=== PATIENT | male | born 1950 | race Caucasian/White ===

== ENCOUNTER 2018-03-26 15:26 | Inpatient (IN) | payer OTHER, MEDICARE ==
[2018-03-26] MEDS ORDERED: ENOXAPARIN 80 MG/0.8 ML SYR SC ONE (18:05)
--- NOTE | 2018-03-26 22:32 | GHP ---
[f rep st] HISTORY AND PHYSICAL DATE OF ADMISSION: 03/26/2018 CHIEF COMPLAINT: Jaundice and weight loss. 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 He presents to the emergency department after being referred by his newly established primary care provider after he was found to have a pancreatic mass obstructing the common bile duct. The patient has had jaundice over the past 4 days. He reports about 8 pounds of weight loss over the past 3 weeks. He has been having diarrhea since that time, and his appetite has been quite poor. He denies any fevers or chills. He describes a vague abdominal pain, but it is described as very mild and nonspecific. He denies any itching. 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 3. Hypertension. 4. Dyslipidemia. 5. GERD. 6. Cervical radiculopathy. PAST SURGICAL HISTORY: 1. Radical orchiectomy. 2. Umbilical hernia repair. 3. Inguinal hernia repair. HOME MEDICATIONS: Reviewed. Refer to home med reconciliation. ALLERGIES: No known drug allergies. 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 He denies any significant alcohol use. He denies any current tobacco use or illicit drug use. He smoked in the 80s. FAMILY HISTORY: Reviewed and noncontributory. REVIEW OF SYSTEMS: Comprehensive 10-point review of systems was done and is negative except for as mentioned in the HPI and below. He denies any chest pain. He denies any shortness of breath. PHYSICAL EXAMINATION: VITAL SIGNS: Blood pressure 104/74, pulse 68, respiratory rate 16, O2 saturation 98% on room air. Temperature 37.1. GENERAL : No acute distress. HEAD: Normocephalic, atraumatic. EYES: PERRLA with icteric sclerae. MOUTH: Moist mucous membranes. NECK: Supple. No lymphadenopathy. CARDIOVASCULAR: S1, S2. No murmurs, rubs, clicks, or gallops. No JVD. No lower extremity edema. PULMONARY: Lungs are clear. No wheezes, rales, or rhonchi. ABDOMEN: Soft, nontender, nondistended. No guarding or rebound tenderness. Normoactive bowel sounds. EXTREMITIES: No clubbing or cyanosis. NEURO: Cranial nerves 2-12 grossly intact. No focal motor or sensory deficits. SKIN: Jaundice, abdomen and chest. DIAGNOSTICS: Laboratory studies are not available to me due to [employer] downtime. CT report which the patient brought in revealed small volume acute thrombopulmonary embolic disease in the right lower lobe showing at least 2 small subsegmental filling defects. There is a 2 cm lesion of the pancreatic head at the major papilla, highly suspicious for pancreatic adenocarcinoma with a pancreatic mass obstructing the common bile duct. There were numerous indeterminate liver lesions as well as a 1 cm nodule in left adrenal node and an enlarged node posterior to the pancreatic head without encasement or thrombus of the portal venous system. ASSESSMENT AND PLAN: 1. Painless jaundice in the setting of weight loss. Found to have a 2 cm lesion at the pancreatic head with a mass obstructing the common bile duct suspicious for primary pancreatic adenocarcinoma with numerous indeterminate liver lesions and a 1 cm left adrenal nodule. Plan: The patient will be admitted to the hospital for further workup and evaluation. I have ordered a CBC, CMP, CA-19-9. I have asked Dr. Fitch with Gastroenterology to evaluate the patient for endoscopic retrograde cholangiopancreatography, biopsy, and biliary stent placement as well as Dr. Sanchez from Oncology to render an opinion regarding further treatment. 2. Small volume acute thrombopulmonary embolic disease. Plan: The patient appears to be asymptomatic from these small volume pulmonary emboli. However, he is very high risk for further venous thromboembolism. I have ordered 1 dose of Lovenox 1 mg/kg x1 now. If the patient does not go to procedure tomorrow, this will need to be re-dosed. 3. History of hypertension. Will continue home blood pressure medications and titrate as indicated. 4. The patient requests to be full code status. /[id number]/MODL MTDD
[2018-03-26] MEDS ORDERED: ONDANSETRON DISINTEGRATING 4 MG TAB PO PRN (23:00)
[2018-03-26] MEDS ORDERED: diphenhydrAMINE 25 MG CAP PO PRN (23:01)
[2018-03-26] MEDS ORDERED: PROMETHAZINE HCL 25 MG TAB PO PRN (23:01)
[2018-03-27 05:50] LABS: PLATELET COUNT 128 10^3/uL (150-400)
[2018-03-27] MEDS: PANTOPRAZOLE SODIUM 40 MG TAB PO SCH (08:38)
[2018-03-27] MEDS: FINASTERIDE 5 MG TAB PO SCH (08:38)
[2018-03-27] MEDS: TAMSULOSIN HCL 0.4 MG CAP PO SCH (08:38)
[2018-03-27] MEDS: VALSARTAN 160 MG TAB PO SCH (08:38)
[2018-03-27] MEDS: HYDROCHLOROTHIAZIDE 25 MG TAB PO SCH (08:39)
[2018-03-27] MEDS ORDERED: OMEGA-3 FATTY ACIDS 1,000 MG CAP PO SCH (09:00)
[2018-03-27] MEDS ORDERED: CHOLECALCIFEROL VIT D3 1,000 UNITS TAB PO SCH (09:00)
[2018-03-27] MEDS ORDERED: ASPIRIN EC 81 MG TAB PO SCH (09:00)
[2018-03-27] MEDS ORDERED: ATORVASTATIN CALCIUM 20 MG TAB PO SCH (09:00)
[2018-03-27] MEDS ORDERED: POTASSIUM CL 20 MEQ TAB PO ONE (09:45)
[2018-03-27] MEDS ORDERED: MAGNESIUM SULF 2 GM/WATER 50 ML IV ONE (10:00)
--- NOTE | 2018-03-27 10:04 | HOSPPROG ---
Hospitalist Progress Note Assessment/Plan: #Painless Jaundice #Pancreatic Mass obstructing CBC concerning for primary Pancreatic adenocarcinoma #Liver Lesions, Adrenal Gland Lesion #Hyperbilirubinemia #Bradycardia, sinus, at rest #HTN #Hypokalemia/Hypomagnesemia Plan: GI to performed EUS with stent, biopsy today Replace electrolytes per protocol continue inpatient Subjective: no pain. will have EUS today. BP controlled Objective: Vital Signs Temp Pulse Resp BP Pulse Ox 36.9 C 47 L 16 124/72 H 98 03/27/18 07:52 03/27/18 07:52 03/27/18 07:52 03/27/18 08:39 03/27/18 07:52 Laboratory Results 03/27/18 04:49 03/27/18 04:49 03/26/18 03/27/18 03/28/18 05:59 05:59 05:59 Intake Total 500 Balance 500 - Physical Exam Constitutional: no apparent distress Eyes: EOMI Ears, Nose, Mouth, Throat: moist mucous membranes, hearing normal Cardiovascular: regular rate and rhythym, No edema Respiratory: no respiratory distress Gastrointestinal: normoactive bowel sounds, soft, non-tender abdomen Skin: warm Neurologic: AAOx3 Psychiatric: interacting appropriately, not anxious, not encephalopathic ICD10 Worksheet Patient Problems: Problems Problem Status Onset Jaundice Acute - ICD10 Problem Qualifiers (1) Jaundice
[2018-03-27] MEDS ORDERED: LOPERAMIDE HCL 2 MG CAP PO PRN (10:17)
[2018-03-27] MEDS ORDERED: D5W 1/2 NS W/ 20 KCl/L 1,000 ML IV SCH (10:30)
--- NOTE | 2018-03-27 11:30 | GCON ---
[f rep st] CONSULTATION GASTROENTEROLOGY INPATIENT CONSULTATION DATE OF CONSULTATION: 03/27/2018 I was kindly requested to see the patient by Dr. Ervin Santacruz in consultation for chief complaint of jaundice. 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 He noticed about 8 days ago the development of jaundice, along with some weight loss over the last 3 weeks. He also complains of some fatigue, and some diarrhea prior to admission. Evaluation included a CT scan, that was done prior to admission at [facility], which shows a 2 cm pancreatic mass near the major papilla in the head of the pancreas, with 7 liver lesions seen, largest being 2.7 cm, suspicious for metastatic disease. There is a large lymph node posterior to the pancreatic head. There is dilation of the biliary ducts, including the common bile duct to 19 mm. There is also mention of a possible right lower lobe pulmonary emboli. PAST MEDICAL HISTORY: 1. As above. 2. Emboli: Inguinal hernia repair. 3. Scrotal liposarcoma, requiring surgery. 4. Rheumatoid arthritis. 5. Hypertension. 6. Elevated lipids. 7. Reflux, with a short-segment of Meyers's. He states that this was surveyed and biopsied in November, and was unremarkable. 8. Cervical radiculopathy. ALLERGIES: Include quinolones. MEDICATIONS: Inpatient medications include Enbrel weekly, Lipitor, Proscar, hydrochlorothiazide, a proton pump inhibitor daily, Flomax, and Diovan. SOCIAL HISTORY: He is . His 's name is Adamaris. FAMILY HISTORY: Negative for similar jaundice. REVIEW OF SYSTEMS: Positive pertinent review of systems as per my HPI. Otherwise, complete review of systems is negative. PHYSICAL EXAM: CONSTITUTIONAL: Nontoxic-appearing, pleasant gentleman. SKIN: Jaundice, warm. EYES: Scleral icterus, normal accommodation. EARS, NOSE, MOUTH, and THROAT: Oropharynx without masses, moist mucosa. CARDIOVASCULAR: Normal S2, normal PMI. RESPIRATORY: Lungs clear to auscultation and percussion anteriorly. GASTROINTESTINAL: Abdomen soft, nontender. NEUROLOGIC : Grossly nonfocal, cranial nerves grossly intact. PSYCHIATRIC: Orientation, insight appropriate. MUSCULOSKELETAL: Strength grossly normal throughout, normal station. LABORATORIES: Include hematocrit 37.6%, platelet count of 128,000. Total bilirubin 9.7. AST 176. CA 19-9 pending. Potassium 3. ASSESSMENT: Pancreatic mass, with secondary jaundice, dilation of his biliary system. Almost certainly represents a pancreatic adenocarcinoma. PLAN: 1. Dr. Cook will proceed with an endoscopic ultrasound/ERCP with stenting later this afternoon. With EUS, we will attempt to get a tissue diagnosis. 2. With his probable metastatic liver disease, if it is possible, we will try and place a metal biliary stent today. 3. We will give a dose of Unasyn preprocedure, since he has bile duct obstruction. 4. N.p.o. except meds, sips of water for the above. 5. IV fluids. 6. Imodium as needed, if he redevelops diarrhea. 7. We will check his coags, and correct as needed. Thank you for allowing me to help in the management of the patient. Copy requested to: Dr. Elisabeth Kaplan /[id number]/MODL MTDD
[2018-03-27] MEDS ORDERED: AMPICILLIN/SULBACTAM 3 GM in NS 100 ML IV ONE (12:30)
[2018-03-27 12:46] LABS: INR 1.2 (0.83-1.16); PROTIME(PATIENT) 15.4 SEC (12.0-15.0)
--- NOTE | 2018-03-27 15:27 | GCON ---
[f rep st] CONSULTATION ONCOLOGY CONSULT REFERRING PHYSICIAN: Ervin Santacruz DO HISTORY OF PRESENT ILLNESS: The patient is a 67-year-old gentleman, who had been feeling well up until the last couple of weeks. He has noticed about an 8- pound weight loss and just generally not feeling as well. About 12 days ago, he had noticed superficial phlebitis in his right leg. He really did not seek medical attention for it and treated it with aspirin; however, he had some occasional vomiting and loose, yellowish stools and increased lethargy. Last week, he flew back to [place], where he recently moved from to see his daughter and, while there, felt his eyes and skin looked jaundiced. After returning, he called his primary care provider. Set him up with labs and a CT scan, which revealed liver masses and a pancreatic mass. He is admitted to the hospital for further evaluation. He has been seen by GI and will undergo an EGD and probable stent placement. Aside from the weight loss and other symptoms as above, he denied any fever or night sweats. ALLERGIES: He is allergic flouroquinolones. HOME MEDICATIONS: Include fish oil, cholecalciferol, aspirin, omeprazole, valsartan with hydrochlorothiazide, tamsulosin, finasteride, etanercept and atorvastatin. CHRONIC ILLNESSES: 1. Paratesticular sarcoma, 2005, treated with surgical resection. 2. Polymyalgia rheumatica in 2012. 3. Seronegative rheumatoid arthritis, 2014. Initially started with Humira but had a local reaction, so has been on Enbrel with good control. 4. BPH. 5. History of atypical nevi. 6. Hypertension. 7. Elevated lipids. 8. Short length of Meyers's esophagitis, diagnosed 2004. He has been on PPI. Last endoscopy was in November. 9. Cervical radiculopathy, treated with epidurals and physical therapy. SURGICAL HISTORY: 1. Removal of the testicular sarcoma and a portion of the scrotum. 2. Inguinal hernia repair. SOCIAL HISTORY: He is . 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 Originally was living and practicing in [place], [place]. Drinks only occasionally. Never smoked. FAMILY HISTORY: Significant for a daughter, who had a superficial melanoma removed. No other history of pancreatic cancer or melanoma in the family. REVIEW OF SYSTEMS: 10-point review of systems performed. Pertinent positives in as per HPI. Otherwise negative. PHYSICAL EXAM: VITAL SIGNS: Temp is 37, pulse 62. Blood pressure is 122/70. GENERAL: He is in no distress. HEENT: Sclerae are icteric. SKIN: Jaundice. LUNGS: Clear. CARDIAC: Regular without murmur. ABDOMEN: Soft, mild discomfort in the upper abdomen but no overt pain or guarding. EXTREMITIES: He does have a palpable cord on his right inner leg, but it is nontender, and I do not appreciate any erythema. NEUROLOGICAL: Grossly intact. LABS: CBC shows a mild anemia, 13.2. PT is 15, PTT is 29.8. Chemistries: Potassium is a low 3, total bilirubin is 9.7, AST is 176. LDH 656. CA19-[address] of the abdomen shows small-volume acute thromboembolic disease in the right lower lobe, a 2 cm mass in the pancreatic head that is obstructing the common bile duct, and at least 7 indeterminate liver lesions suspicious for metastatic disease, and an enlarged lymph node posterior to the pancreatic head. There is an indeterminate left adrenal gland lesion, but he thought that might be old. IMPRESSION: 1. Painless jaundice with mass in the head of the pancreas and multiple liver lesions. 2. Remote history of scrotal sarcoma. 3. Incidental pulmonary emboli with recent history of superficial thrombophlebitis. 4. Seronegative rheumatoid arthritis. 5. Benign prostatic hypertrophy. 6. History of atypical nevi with a history of melanoma in his daughter. We discussed multiple issues today. He asked about genetic testing, which definitely could be done when we stabilize here since he has had atypical nevi and pancreatic cancer and sarcoma, and his daughter has had a superficial melanoma. As for the problem right now, he has biliary obstruction, and he is going to be evaluated by Gastroenterology and try to hopefully have a stent placed, which will alleviate the obstruction. At the same time, we will try to get some biopsies and samples to confirm our suspicion of a primary pancreatic cancer. We discussed the basics of therapy, which are not curative. He asked about a second opinion, which is quite reasonable, and we can see if he can get set up with Dr. Mathis or his partners down at the [facility], to see if they have any clinical trials available. We had a clinical trial, but I believe it has since closed. Finally, with the clot, we mostly just talked about the superficial phlebitis, which has me concerned for risks of other clotting, but the CT scan shows probably an asymptomatic pulmonary embolism, so he should be treated with anticoagulation. If he is eating and drinking fine, I am okay with using one of the oral agents since it is relatively low volume and more convenient. I will follow along with you while in the hospital. /[id number]/MODL MTDD
[2018-03-27] MEDS ORDERED: IOTHALAMATE MEG (CONRAY) 50 ML VIAL IV ONE (15:54)
[2018-03-27] MEDS ORDERED: GLUCAGON HCL 1 MG VIAL ONE (15:54)
[2018-03-27] MEDS ORDERED: LR 1,000 ML IV ONE (16:56)
--- NOTE | 2018-03-27 16:58 | EDPHY ---
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 He states over last 2 weeks or so he has had decreased appetite and has felt very weak and tired. He has not had any pain in his chest or felt short of breath. He has had some mild pain in his right leg knee thought that this appeared a bit swollen and he thought maybe this was from trauma. Over last few days he has developed some painless jaundice. He saw his primary care provider, Dr. Kaplan at the [facility], who ordered CT imaging of the abdomen and pelvis with IV contrast. The patient presents after having the studies from Radiology and report shows pancreatic mass with suspicious lesions in the liver as well as small volume pulmonary embolism involving the right lower lobe of the lung. No fevers or chills. No night sweats. No recent travel. He has had very mild generalized abdominal pain. Light-colored stools. No melena. No blood in his stool. REVIEW OF SYSTEMS: Constitutional: No fever, no chills. Eyes: No double or blurry vision. ENT: No sore throat. Respiratory: No cough, no shortness of breath. Cardiac: No chest pain. Gastrointestinal: Abdominal pain as above. No vomiting or diarrhea. Genitourinary: No dysuria. Musculoskeletal: No neck or back pain. Skin: No rashes. Neurological: No headache. Past Medical/Surgical History: Meyers's esophagus, GERD, rheumatoid arthritis on M [place], dyslipidemia, BPH, hypertension Social History: . 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 Moved [place] 5 weeks ago. Smoking Status: Former smoker Physical Exam: General Appearance: Alert, no distress. Afebrile. 97% on room air. 117/71. Jaundice. Eyes: Pupils equal and round. Extraocular motions are all intact. Icteric sclera. ENT: Mouth: Mucous membranes moist. Respiratory: No wheezing, rhonchi, or rales, lungs are clear to auscultation. Cardiovascular: Regular rate and rhythm. Gastrointestinal: Abdomen is soft and nontender, no masses, no rebound or guarding, bowel sounds normal. Neurological: Alert and oriented x 3, cranial nerves II through XII grossly intact Skin: Warm and dry, no rashes. Musculoskeletal: Nontender to palpate along the cervical, thoracic or lumbar spine. Neck is supple. Extremities: Full range of motion and no peripheral edema. Psychiatric: Patient is oriented X 3, there is no agitation. Constitutional: Initial Vital Signs Temperature (C) 37 C 03/27/18 05:19 Heart Rate 47 L 03/27/18 05:19 Respiratory Rate 16 03/27/18 05:19 Blood Pressure 117/71 03/27/18 05:19 O2 Sat (%) 97 03/27/18 05:19 Allergies/Adverse Reactions: Quinolones Allergy (Severe, Unverified 03/26/18 22:52) Other-Enter Comments Home Medications: Medication Instructions Recorded Aspirin EC [Aspirin EC 81 mg (*)] 81 mg PO DAILY 03/26/18 Atorvastatin Calcium [Lipitor 20 20 mg PO DAILY 03/26/18 mg (*)] Cholecalciferol Vit D3 [Vitamin D3 1,000 units PO DAILY 03/26/18 (*)] Etanercept [Enbrel] 50 mg SQ Q7D 03/26/18 Finasteride [Proscar 5 MG (*)] 5 mg PO DAILY 03/26/18 Herbals/Supplements -Info Only 1 ea PO DAILY 03/26/18 Ray-3 Fatty Acids [Fish Oil 1000 1,000 mg PO DAILY 03/26/18 mg (*)] Omeprazole 40 mg PO DAILY 03/26/18 Tamsulosin HCl [Flomax 0.4 MG (*)] 0.8 mg PO DAILY 03/26/18 Valsartan/Hydrochlorothiazide 1 each PO DAILY 03/26/18 [Valsartan-Hctz 160-12.5 mg Tab] Medical Decision Making - Diagnostics Imaging Results: Imaging Impressions Abdomen CT 03/26/18 12:36 Impression: 1. Small volume acute thrombopulmonary embolic disease right lower lobe. 2. 2-cm mass in pancreatic head, at major papilla, suspicious for primary pancreatic adenocarcinoma. 3. Pancreatic mass obstructs common bile duct and pancreatic duct. 4. Numerous (at least 7) indeterminate liver lesions suspicious for metastatic pancreatic adenocarcinoma. The lesion in the caudal right lobe, measuring 1.5 cm , may be amenable to ultrasound-guided biopsy, if desired. 5. Minimally enlarged node posterior to pancreatic head. No encasement or thrombosis of the portal venous system. 6. Small indeterminate 1-cm nodule left adrenal gland. Recommend PET/CT for optimal staging. 7. No ascites or peritoneal implant. Findings discussed with physician, Dr. Betsey Kaplan at 03/26/2018 14:40. ED Course/Re-evaluation: This patient was seen during downtime. 67-year-old male presents to the emergency department with painless jaundice. CT imaging reveals pancreatic tumor with likely metastasis involving the liver. There is also small volume PE. The case was discussed with Dr. Rodney, secondary supervising physician, who spoke with the hospitalist, Dr. Ervin Santacruz for admission to the hospital who will speak with Oncology and Gastroenterology. CBC was within normal limits. The rest of his laboratory studies are still pending. Differential Diagnosis: Including but not limited to pulmonary embolism, pancreatic tumor with metastasis, bowel obstruction, GERD, peptic ulcer disease - Data Points Medications Given: Finasteride (Proscar) 5 mg PO DAILY CANDIDA Stop: 09/23/18 08:59 Last Admin: 03/27/18 08:38 Dose: 5 mg Hydrochlorothiazide (Hydrochlorothiazide) 12.5 mg PO DAILY CANDIDA Stop: 09/23/18 08:59 Last Admin: 03/27/18 08:39 Dose: 12.5 mg Potassium Chloride/Dextrose/Sod Cl (D5w 1/2 Ns W/ 20 Kcl/L) 1,000 mls @ 100 mls /hr IV CONT CANDIDA Stop: 09/23/18 10:29 Last Admin: 03/27/18 10:27 Dose: 1,000 mls Pantoprazole Sodium (Protonix) 40 mg PO DAILY CANDIDA Stop: 09/23/18 08:59 Last Admin: 03/27/18 08:38 Dose: 40 mg Tamsulosin HCl (Flomax) 0.8 mg PO DAILY CANDIDA Stop: 09/23/18 08:59 Last Admin: 03/27/18 08:38 Dose: 0.8 mg Valsartan (Diovan) 160 mg PO DAILY CANDIDA Stop: 09/23/18 08:59 Last Admin: 03/27/18 08:38 Dose: 160 mg Discontinued Medications Enoxaparin Sodium (Lovenox) 70 mg SC ONCE ONE Stop: 03/26/18 18:06 Last Admin: 03/27/18 05:09 Dose: Not Given Magnesium Sulfate (Magnesium Sulf 2 Gm (Premix)) 50 mls @ 50 mls/hr IV ONCE ONE Stop: 03/27/18 10:59 Last Admin: 03/27/18 10:27 Dose: 50 mls Ampicillin Sodium/Sulbactam (Sodium 3 gm/ Sodium Chloride) 100 mls @ 200 mls/ hr IV ONCE ONE PRN Reason: Protocol Stop: 03/27/18 12:59 Last Admin: 03/27/18 13:37 Dose: 100 mls Potassium Chloride (Klor-Con) 40 meq PO ONCE ONE Stop: 03/27/18 09:46 Last Admin: 03/27/18 10:28 Dose: 40 meq Departure - Departure Disposition: [facility] Inpatient Acute Clinical Impression: Jaundice, Pancreatic tumor Pulmonary embolism Qualifiers: Pulmonary embolism type: other Chronicity: acute Acute cor pulmonale presence: without acute cor pulmonale Qualified Code(s): I26.99 - Other pulmonary embolism without acute cor pulmonale Condition: Good
[2018-03-27] MEDS ORDERED: PROPOFOL 200 MG/20 ML VIAL ONE ×2 (17:11)
[2018-03-27] MEDS ORDERED: ROCURONIUM 50 MG/5 ML VIAL ONE (17:11)
[2018-03-27] MEDS ORDERED: LIDOCAINE 2% 100 MG/5 ML SYR ONE (17:12)
[2018-03-27] MEDS ORDERED: MIDAZOLAM 2 MG/2 ML VIAL ONE (17:32)
--- NOTE | 2018-03-27 17:56 | PDANEPAE ---
ANE History of Present Illness newly discovered pancreatic mass, also liver mass here for EUS/ERCP ANE Past Medical History - Cardiovascular History Hx Hypertension: No Hx Arrhythmias: No Hx Chest Pain: No Hx Coronary Artery / Peripheral Vascular Disease: No - Pulmonary History Hx COPD: No Hx Asthma/Reactive Airway Disease: No Hx Oxygen in Use at Home: No Hx Sleep Apnea: No Sleep Apnea Screening Result - Last Documented: Negative - Endocrine History Hx Diabetes: No - Renal History Renal History Comment: BPH ANE Review of Systems Review of Systems: - Exercise capacity Exercise capacity: >=4 METS ANE Patient History - Allergies Allergies/Adverse Reactions: Quinolones Allergy (Severe, Unverified 03/26/18 22:52) Other-Enter Comments - Home Medications Home medications: home medication list seen and reviewed Home Medications: Aspirin EC [Aspirin EC 81 mg (*)] 81 mg PO DAILY 03/26/18 [Last Taken 03/26/18] Atorvastatin Calcium [Lipitor 20 mg (*)] 20 mg PO DAILY 03/26/18 [Last Taken 10/01] Cholecalciferol Vit D3 [Vitamin D3 (*)] 1,000 units PO DAILY 03/26/18 [Last Taken 03/26/18] Etanercept [Enbrel] 50 mg SQ Q7D 03/26/18 [Last Taken 03/24/18] Finasteride [Proscar 5 MG (*)] 5 mg PO DAILY 03/26/18 [Last Taken 03/26/18] Herbals/Supplements -Info Only 1 ea PO DAILY 03/26/18 [Last Taken 03/26/18] [place]-3 Fatty Acids [Fish Oil 1000 mg (*)] 1,000 mg PO DAILY 03/26/18 [Last Taken 03/26/18] Omeprazole 40 mg PO DAILY 03/26/18 [Last Taken 03/26/18] Tamsulosin HCl [Flomax 0.4 MG (*)] 0.8 mg PO DAILY 03/26/18 [Last Taken 03/26/18 ] Valsartan/Hydrochlorothiazide [Valsartan-Hctz 160-12.5 mg Tab] 1 each PO DAILY 03/26/18 [Last Taken 03/26/18] - NPO status NPO Status: no food or drink >8 hours NPO Since - Liquids (Date): 03/27/18 NPO Since - Liquids (Time): 01:00 NPO Since - Solids (Date): 03/26/18 NPO Since - Solids (Time): 19:30 - Anes Hx Anes Hx: no prior problems - Smoking Hx Smoking Status: Former smoker - Alcohol Use Alcohol Use: None - Family Anes Hx Family Anes Hx: none ANE Labs/Vital Signs - Labs Result Diagrams: 03/27/18 04:49 03/27/18 04:49 - Vital Signs Blood Pressure: 124/77 Heart Rate: 69 Respiratory Rate: 16 O2 Sat (%): 97 Height: 176.53 cm Weight: 71 kg ANE Physical Exam - Airway Neck exam: FROM Mallampati Score: Class 2 Mouth exam: normal dental/mouth exam - Pulmonary Pulmonary: no respiratory distress, clear to auscultation - Cardiovascular Cardiovascular: regular rate and rhythym, no murmur, rub, or gallop - ASA Status ASA Status: III ANE Anesthesia Plan Anesthesia Plan: general endotracheal anesthesia Urgent/Emergent Case: Colleen gutierrez completed preop but documented later for safe timely pt care
[2018-03-27] MEDS ORDERED: epHEDrine SULFATE 10 MG/ML SYR ONE (18:09)
--- NOTE | 2018-03-27 18:13 | PDMN ---
Medical Necessity Medical necessity: est los>2mn for painless jaundice, pancreatic mass, liver lesions, and hypokalemia, hypomagnesemia, and hyperbilirubinemia; admit for GI consult, EUS W/stent and bx; per order 03/26/18
[2018-03-27] MEDS ORDERED: PROMETHAZINE HCL 25 MG/ML INJ IVP PRN (19:35)
[2018-03-27] MEDS ORDERED: ONDANSETRON 4 MG/2 ML VIAL IVP PRN (19:35)
[2018-03-27] MEDS ORDERED: NALOXONE HCL 0.4 MG/ML INJ IVP PRN (19:35)
[2018-03-27] MEDS ORDERED: ACETAMINOPHEN 500 MG TAB PO PRN (19:35)
[2018-03-27] MEDS ORDERED: DIAZEPAM 5 MG/ML 1 ML SYR IVP PRN (19:35)
[2018-03-27] MEDS ORDERED: INDOMETHACIN 50 MG SUPP PR ONE (19:37)
--- NOTE | 2018-03-27 19:37 | POSTANESTH ---
Post Anesthetic Evaluation Cardiovascular Status: Normal, Stable, Similar to Pre-Op Cond Respiratory Status: Normal, Stable, Similar to Pre-op Cond. Level of Consciousness/Mental Status: Can Participate in Eval, Alert and Oriented Pain Control: Adequate, Prn Tx Ordered Nausea/Vomiting Control: Adequate, Prn Tx Ordered Complications Possibly Related to Anesthesia: None Noted
--- NOTE | 2018-03-27 20:22 | SOAPPROG ---
SOAP Progress Note Assessment/Plan: Assessment: Plan: 03/27/18 20:21 GI note See dictated EUS report for details. . FNA performed of liver lesion. Preliminary report is lesional. EBL: Minimal Meds: General. Objective: Vital Signs Temp Pulse Resp BP Pulse Ox 36.5 C 63 17 105/56 L 98 03/27/18 20:01 03/27/18 20:00 03/27/18 20:01 03/27/18 20:01 03/27/18 20:01 Laboratory Results 03/27/18 04:49 03/27/18 04:49 03/26/18 03/27/18 03/28/18 05:59 05:59 05:59 Intake Total 500 1705 Balance 500 1705 PT 15.4 SEC (12.0-15.0) H 03/27/18 12:15 INR 1.20 (0.83-1.16) H 03/27/18 12:15 ICD10 Worksheet Patient Problems: Problems Problem Status Onset Jaundice Acute Pancreatic tumor Acute Pulmonary embolism Acute
[2018-03-27] MEDS ORDERED: HEPARIN 10,000 UNIT/10 ML MDV (1,000 UNIT/ML) IVP PRN (21:00)
[2018-03-27] MEDS ORDERED: HEPARIN 10,000 UNIT/10 ML MDV (1,000 UNIT/ML) IVP ONE (21:00)
[2018-03-27] MEDS ORDERED: HEPARIN/DEXTROSE 500 ML IV SCH (21:00)
--- NOTE | 2018-03-27 21:24 | GPN ---
[f rep st] PROCEDURE NOTE DATE OF PROCEDURE: 03/27/2018 PROCEDURE: Esophagogastroduodenoscopy with biopsy, endoscopic ultrasound with fine-needle aspiration. INDICATIONS: The patient is a 67-year-old male who recently presented with bilary obstruction/jaundice. He had a CT scan which did reveal a possible mass lesion in the pancreas, liver with enlarged lymph nodes. He presents for further evaluation and possible tissue acquisition. CONSENT: Risks, benefits, and alternatives of the procedure were discussed in great detail with the patient. Risks of infection, bleeding, perforation, sedation, and pancreatitis were discussed. All questions answered and informed consent was obtained. MEDICATIONS: General anesthesia. Please see Anesthesia record for details. ESTIMATED BLOOD LOSS: Insignificant. ESOPHAGOGASTRODUODENOSCOPY EXAMINATION: The Olympus upper endoscope was introduced into the mouth and advanced to the esophagus. The proximal and mid esophagus were normal in appearance. The patient had an irregular Z-line. This was not biopsied since it was previously biopsied and he has a known history of short-segment Meyers's esophagus. The stomach was entered and closely examined, including retroflexed views of the angularis, cardia and fundus. A large hiatal hernia was noted. The mucosa of the whole body and fundus of the stomach were erythematous and nodular. The folds were very thickened. Biopsies taken. The duodenal bulb and second portion were normal in appearance. ENDOSCOPIC ULTRASOUND EXAMINATION: The Olympus linear echoendoscope was introduced in mouth and advanced to second portion of the duodenum. The esophagus, stomach, and duodenum were visualized endosonographically. The pancreas was examined from the uncinate process to the tail, where the spleen was seen. The pancreatic parenchyma was atrophic. Hyperechoic foci as well as prominent side branches with hyperechoic beck were noted throughout he pancreas. In the head of the pancreas, an approximate 2 cm ill-defined lesion was noted. The common bile duct seen running into the lesion. No vascular involvement was noted. No stone disease noted. Doppler was used to rule out intervening vessels. Two transduodenal pass with a 25 gauge needle were performed. Cytology was present and the specimen was not adequate. In the right lobe of the liver, an approximate 2 cm lesion was seen. It was hypoechoic and had well-defined margins. Doppler was used to rule out intervening vessels. One transduodenal pass was made with a 25 gauge needle. Cytology was present and is adequate on preliminary report. The common bile duct was seen. It was noted running through a lesion and was dilated to 15mm. The gallbladder was significantly distended with significant debris. Multiple round, hypoechoic peripancreatic lymph nodes with distinct margins were noted. They measuring 4-7 mm. IMPRESSION: 1. Pancreatic head lesion- with liver lesion. FNA performed and preliminary report of the liver lesion was lesional. No obvious vascular involvement noted. 2. Irregular nodular folds in the stomach. 3. Short-segment of Meyers's esophagus. RECOMMENDATIONS: 1. Proceed with ERCP. 2. N.p.o. 3. Continue previous medications. /[id number]/MODL MTDD
[2018-03-28 04:59] LABS: PLATELET COUNT 149 10^3/uL (150-400)
[2018-03-28] MEDS: HYDROCHLOROTHIAZIDE 25 MG TAB PO SCH (09:07)
[2018-03-28] MEDS: PANTOPRAZOLE SODIUM 40 MG TAB PO SCH (09:08)
[2018-03-28] MEDS: VALSARTAN 160 MG TAB PO SCH (09:08)
[2018-03-28] MEDS: TAMSULOSIN HCL 0.4 MG CAP PO SCH (09:08)
[2018-03-28] MEDS: FINASTERIDE 5 MG TAB PO SCH (09:08)
[2018-03-28 11:20] LABS: INR 1.3 (0.83-1.16); PROTIME(PATIENT) 16.4 SEC (12.0-15.0)
[2018-03-28 11:21] LABS: PLATELET COUNT 260 10^3/uL (150-400)
--- NOTE | 2018-03-28 12:08 | SOAPPROG ---
AAYUSH Progress Note Assessment/Plan: E&M probable pancreatic cancer * Pancreatic mass with liver lesions: presumed pancreatic cancer; biopsy pending. I spent about an hour with patient and discussing therapy options. They would like to try to get a port while here before starting anticoagulation. IMED was going to call surgery. * Pulmonary Embolism: incidental but patient high risk so I recommend anticoagulation. Ok to use COURT. * Biliary Obstruction: s/p stent placed 03/27. Bili much better. Subjective: No acute complaints. Slight discomfort in abd. Objective: Vital Signs Temp Pulse Resp BP Pulse Ox 36.6 C 83 16 127/75 H 96 03/28/18 07:56 03/28/18 07:56 03/28/18 07:56 03/28/18 09:08 03/28/18 07:56 Laboratory Results 03/28/18 04:27 03/28/18 04:27 03/27/18 03/28/18 03/29/18 05:59 05:59 05:59 Intake Total 500 2055 Balance 500 2055 PT 15.4 SEC (12.0-15.0) H 03/27/18 12:15 INR 1.20 (0.83-1.16) H 03/27/18 12:15 - Time Spent With Patient Time Spent With Patient: 60 min Physical Exam - Physical Exam General Appearance: no apparent distress ICD10 Worksheet Patient Problems: Problems Problem Status Onset Jaundice Acute Pancreatic tumor Acute Pulmonary embolism Acute
--- NOTE | 2018-03-28 12:59 | HOSPPROG ---
Hospitalist Progress Note Assessment/Plan: #Painless Jaundice #Pancreatic Mass obstructing CBD concerning for primary Pancreatic adenocarcinoma #Liver Lesions, Adrenal Gland Lesion #Hyperbilirubinemia #Bradycardia, sinus, at rest #HTN #Hypokalemia/Hypomagnesemia #P.E. #Acute Kidney Injury Plan: -Await Path -Presumptive diagnosis is Pancreatic Cancer -Needs Port, will try to arrange while he is here -Needs Anticoagulation, and this can be arranged around PORT insertion and if ok with GI given Liver biopsy -IVF for GARETH, recheck labs -replace electrolytes per protocol -ONC care per Oncology Cont inpatient. If able to arrange PORT and Cr better, then consider d/c today. Possibly d/c tomorrow Await biopsy result Subjective: Cr has increased. IVF running Objective: Vital Signs Temp Pulse Resp BP Pulse Ox 36.6 C 83 16 127/75 H 96 03/28/18 07:56 03/28/18 07:56 03/28/18 07:56 03/28/18 09:08 03/28/18 07:56 Laboratory Results 03/28/18 04:27 03/28/18 04:27 03/27/18 03/28/18 03/29/18 05:59 05:59 05:59 Intake Total 500 2055 Balance 500 2055 PT 15.4 SEC (12.0-15.0) H 03/27/18 12:15 INR 1.20 (0.83-1.16) H 03/27/18 12:15 - Physical Exam Constitutional: no apparent distress Eyes: PERRL, EOMI Ears, Nose, Mouth, Throat: moist mucous membranes, hearing normal Cardiovascular: No edema Respiratory: no respiratory distress Gastrointestinal: No ascites, No guarding, No distension Skin: No abrasion, No rash Neurologic: AAOx3 Psychiatric: interacting appropriately, not anxious, not encephalopathic Lymph, Heme, Immunologic: No petechiae ICD10 Worksheet Patient Problems: Problems Problem Status Onset Jaundice Acute Pancreatic tumor Acute Pulmonary embolism Acute - ICD10 Problem Qualifiers (1) Jaundice
--- NOTE | 2018-03-28 13:07 | GIREPORT ---
Former[facility] Surgical Services - Endoscopy Department Patient Name: Milton Horton Procedure Date: 03/27/2018 6:42 PM Patient Type: Inpatient Attending MD/ ER Physician: Jefferson Fitch MD Procedure: ERCP Indications: Note dictated, consult appreciated. Jaundice. EUS done prior, with diag nosis of pancreatic cancer made. Providers: Jefferson Fitch MD Medicines: General Anesthesia Complications: No immediate complications. Description of Procedure: After obtaining informed consent, the scope was passed under direct vis ion. Throughout the procedure, the patient's blood pressure, pulse, and oxyg en saturations were monitored continuously. The Duodenalscope was introduc ed through the mouth, and advanced to the duodenum and used to inject cont rast into the bile duct. Findings: EGD findings as per Dr. Cook's earlier EGD/EUS. Normal ampulla. Selective cbd cannulation achieved, with a 2 cm maligna nt stricture seen in the distal cbd, with significant dilation above this. An 8 mm biliary sphincterotomy was made with a sphincterotome, at the 12 o'c lock position. There was no post-sphincterotomy bleeding. Then, a 10 mm, 6 c m covered metal stent was placed, bridging the above stricture. At proced ure's end, copious flow of bile and some sludge seen. 100 mg indomethacin giv en TN at procedure's end, to prevent postERCP pancreatitis (doubt). Estimated Blood Loss: none. Post Op Diagnosis: - Bile duct obstruction, from pancreatic cancer. Stented as above, with copious bile seen post-procedure. Recommendation: - feed - once taking adequate p.o., buffcap IV; as per hospitalist - else, further management as per hospitalist, oncologist. - no heparin products tonight (had sphincterotomy, pancreatic mass and liver bx all done tonight). Tomorrow, if Hct stable, o.k. to start, but would keep dose minimal x 24 hours. I will sign off; please call if we can be of further help [phone] Thank you for allowing me to help in the management of this patient. Attending Participation: I personally performed the entire procedure. Little Paulino MD Jefferson Fitch MD 03/28/2018 1:06:56 PM This report has been signed electronicallyPeter MD Little Number of Addenda: 0 Note Initiated On: 03/27/2018 6:42 PM [email or web address]
[2018-03-28] MEDS ORDERED: NS 500 ML IV ONE (14:57)
--- NOTE | 2018-03-28 15:02 | ASMTCMCOM ---
CM Note CM Note Notes: Pt with likely new dx pf panc ca. Biopsy pending. Pt will get port placement. It is unclear if pt will have any DC needs. CM to follow. Date Signed: 03/28/2018 03:02 PM Electronically Signed By:Kirsten Rodriguez LCSW
[2018-03-28] MEDS: NS 1,000 ML IV SCH ×2 (16:36→23:00)
[2018-03-28] MEDS ORDERED: hydrALAZINE 10 MG TAB PO PRN (17:32)
--- NOTE | 2018-03-28 17:41 | PDCONSULT ---
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 Likely multifactorial in setting of contrast given, poor oral intake while NPO for tests, and ongoing HCTZ and ARB usage, BP running a little low. Seems a bit oliguric today but volume status and lytes ok. - No need for HD at this time. - Will continue IVFs, would only reduce to 100ml/hr if he starts to develop noticeable swelling. - Will check UA, urine PCR, urine sodium, CK. - Will check renal US. - Will continue to monitor. - Avoid hypotension and nephrotoxins. - Will hold HCTZ and ARB for now. - Will ensure that he has f/u in clinic after discharge. HTN: BP a bit on the low side. - Will hold HCTZ and ARB for now. - Will provide hydralazine as needed. - Will continue to monitor. Metabolic acidosis: widening AG today, could be from GARETH but will also check a lactate. Thank you for the interesting consult. Nephrology will continue to follow, please call if you have any additional questions or concerns. 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 He notes that just under two weeks ago he developed a phlebitis in his leg, which he attributed to an accident with a dog he was dogsitting. Then last week he started to develop some icteric sclerae, which worsened over the weekend while visiting his daughter in [place]. He came back Sunday and was seen by a PCP on Sunday, was admitted for further workup shortly after imaging, which showed pancreatic mass with liver nodules. He has had an EGD with biopsy and an ERCP here in interim. He has also had a contrasted study done yesterday. He has largely been NPO and not drinking too much fluids here, was on 1/2NS since yesterday. He notes that he did get indomethacin during ERCP. He did not urinate much overnight for all the fluid he was given in ERCP, and he notes maybe 100ml UOP in the past 5 hours. He is now on NS since this afternoon, was bolused and running at 150ml/hr now. He has no edema, dyspnea or pain. He denies any other recent NSAID use, notes that his Cr of 1.2 on presentation was baseline for him. His Cr this am was up to 1.8, on repeat this afternoon was still 1.8, prompting referral. His initial UA two days ago had no hematuria or dysuria. ROS: Positive per HPI and for weight loss, rest of 10-point ROS negative - Medical/Surgical History Hx Asthma: No Hx Chronic Respiratory Disease: No Hx Diabetes: No Hx Cardiac Disease: No Hx Renal Disease: No Hx Cirrhosis: No Hx Alcoholism: No Hx HIV/AIDS: No Hx Splenectomy or Spleen Trauma: No Other PMH: HTN, BPH, GERD, RA, Barretts (remote), paratesticular liposarcoma - Family History Significant Family History: No pertinent family hx - Social History Smoking Status: Former smoker - Physical Exam Exam: General: alert and oriented, no acute distress Eyes: EOMI, PERRL OP: Clear, MMM Neck: supple, no thyromegaly CV: +2/4 dorsalis pedis pulses, no peripheral edema Resp: nonlabored respirations on RA, no wheezing or cough Abd: Soft, ND Neuro: CN II-XII Grossly intact, no asterixis Psych: cooperative, appropriate mood and affect Skin: C/D/I, no rash on lower extremities Access: none Constitutional: Initial Vital Signs Temperature (C) 37 C 03/27/18 05:19 Heart Rate 47 L 03/27/18 05:19 Respiratory Rate 16 03/27/18 05:19 Blood Pressure 117/71 03/27/18 05:19 O2 Sat (%) 97 03/27/18 05:19 Allergies/Adverse Reactions: Quinolones Allergy (Severe, Unverified 03/26/18 22:52) Other-Enter Comments Home Medications: Medication Instructions Recorded Aspirin EC [Aspirin EC 81 mg (*)] 81 mg PO DAILY 03/26/18 Atorvastatin Calcium [Lipitor 20 20 mg PO DAILY 03/26/18 mg (*)] Cholecalciferol Vit D3 [Vitamin D3 1,000 units PO DAILY 03/26/18 (*)] Etanercept [Enbrel] 50 mg SQ Q7D 03/26/18 Finasteride [Proscar 5 MG (*)] 5 mg PO DAILY 03/26/18 Herbals/Supplements -Info Only 1 ea PO DAILY 03/26/18 [place]-3 Fatty Acids [Fish Oil 1000 1,000 mg PO DAILY 03/26/18 mg (*)] Omeprazole 40 mg PO DAILY 03/26/18 Tamsulosin HCl [Flomax 0.4 MG (*)] 0.8 mg PO DAILY 03/26/18 Valsartan/Hydrochlorothiazide 1 each PO DAILY 03/26/18 [Valsartan-Hctz 160-12.5 mg Tab] Lab and Imaging 03/28/18 04:27 03/28/18 14:07 WBC 5.05 10^3/uL (3.80-9.50) 03/28/18 04:27 RBC 4.24 10^6/uL (4.40-6.38) L 03/28/18 04:27 Hgb 13.1 g/dL (13.7-17.5) L 03/28/18 04:27 Hct 37.8 % (40.0-51.0) L 03/28/18 04:27 MCV 89.2 fL (81.5-99.8) 03/28/18 04:27 MCH 30.9 pg (27.9-34.1) 03/28/18 04:27 MCHC 34.7 g/dL (32.4-36.7) 03/28/18 04:27 RDW 13.2 % (11.5-15.2) 03/28/18 04:27 Plt Count 149 10^3/uL (150-400) L 03/28/18 04:27 MPV 11.1 fL (8.7-11.7) 03/28/18 04:27 Neut % (Auto) 84.0 % (39.3-74.2) H 03/28/18 04:27 Lymph % (Auto) 8.7 % (15.0-45.0) L 03/28/18 04:27 [place] % (Auto) 6.7 % (4.5-13.0) 03/28/18 04:27 Eos % (Auto) 0.0 % (0.6-7.6) L 03/28/18 04:27 Baso % (Auto) 0.4 % (0.3-1.7) 03/28/18 04:27 Nucleat RBC Rel Count 0.0 % (0.0-0.2) 03/28/18 04:27 Absolute Neuts (auto) 4.24 10^3/uL (1.70-6.50) 03/28/18 04:27 Absolute Lymphs (auto) 0.44 10^3/uL (1.00-3.00) L 03/28/18 04:27 Absolute Monos (auto) 0.34 10^3/uL (0.30-0.80) 03/28/18 04:27 Absolute Eos (auto) 0.00 10^3/uL (0.03-0.40) L 03/28/18 04:27 Absolute Basos (auto) 0.02 10^3/uL (0.02-0.10) 03/28/18 04:27 Absolute Nucleated RBC 0.00 10^3/uL (0-0.01) 03/28/18 04:27 Immature Gran % 0.2 % (0.0-1.1) 03/28/18 04:27 Immature Gran # 0.01 10^3/uL (0.00-0.10) 03/28/18 04:27 RBC/WBC/PLT Morphology TNP 03/28/18 04:27 Platelet Estimate TNP 03/28/18 04:27 PT 15.4 SEC (12.0-15.0) H 03/27/18 12:15 INR 1.20 (0.83-1.16) H 03/27/18 12:15 APTT 29.8 SEC (23.0-38.0) 03/27/18 12:15 Sodium 142 mEq/L (135-145) 03/28/18 14:07 Potassium 3.6 mEq/L (3.3-5.0) 03/28/18 14:07 Chloride 103 mEq/L (97-110) 03/28/18 14:07 Carbon Dioxide 22 mEq/l (22-31) 03/28/18 14:07 Anion Gap 17 mEq/L (8-16) H 03/28/18 14:07 BUN 31 mg/dL (7-23) H 03/28/18 14:07 Creatinine 1.8 mg/dL (0.7-1.3) H 03/28/18 14:07 POC Creatinine 1.4 mg/dL (0.7-1.3) H 03/26/18 13:31 Estimated GFR 38 03/28/18 14:07 Glucose 180 mg/dL (70-100) H 03/28/18 14:07 Calcium 8.9 mg/dL (8.5-10.4) 03/28/18 14:07 Phosphorus 3.0 mg/dL (2.5-4.5) 03/27/18 04:49 Magnesium 1.4 mg/dL (1.6-2.3) L 03/27/18 04:49 Total Bilirubin 5.5 mg/dL (0.1-1.4) H 03/28/18 04:27 Conjugated Bilirubin 2.6 mg/dL (0.0-0.5) H 03/28/18 04:27 Unconjugated Bilirubin 2.9 mg/dL (0.0-1.1) H 03/28/18 04:27 AST 155 IU/L (17-59) H 03/28/18 04:27 ALT 192 IU/L (21-72) H 03/28/18 04:27 Alkaline Phosphatase 388 IU/L (38-126) H 03/28/18 04:27 Lactate Dehydrogenase 656 IU/L (313-618) H 03/27/18 04:49 Total Protein 6.3 g/dL (6.3-8.2) 03/28/18 04:27 Albumin 3.7 g/dL (3.5-5.0) 03/28/18 04:27 Lipase 1396 IU/L (23-300) H 03/26/18 16:05 Urine Color JUAN MIGUEL 03/26/18 16:05 Urine Appearance CLEAR 03/26/18 16:05 Urine pH 5.0 (5.0-7.5) 03/26/18 16:05 Ur Specific [place] 1.035 (1.002-1.030) H 03/26/18 16:05 Urine Protein NEGATIVE (NEGATIVE) 03/26/18 16:05 Urine Ketones NEGATIVE (NEGATIVE) 03/26/18 16:05 Urine Blood 1+ (NEGATIVE) H 03/26/18 16:05 Urine Nitrate NEGATIVE (NEGATIVE) 03/26/18 16:05 Urine Bilirubin NEGATIVE (NEGATIVE) 03/26/18 16:05 Urine Urobilinogen NEGATIVE EU (0.2-1.0) 03/26/18 16:05 Ur Leukocyte Esterase NEGATIVE (NEGATIVE) 03/26/18 16:05 Urine RBC 1-3 /hpf (0-3) 03/26/18 16:05 Urine WBC 1-3 /hpf (0-3) 03/26/18 16:05 Ur Epithelial Cells NONE SEEN /lpf (NONE-1+) 03/26/18 16:05 Urine Mucus TRACE /lpf (NONE-1+) 03/26/18 16:05 Urine Glucose NEGATIVE (NEGATIVE) 03/26/18 16:05
[2018-03-29 05:33] LABS: CREATINE KINASE 113 IU/L (0-224)
[2018-03-29] MEDS: NS 1,000 ML IV SCH (06:32)
[2018-03-29 08:01] VITALS: BP 116/71
[2018-03-29] MEDS: FINASTERIDE 5 MG TAB PO SCH (08:48)
[2018-03-29] MEDS: PANTOPRAZOLE SODIUM 40 MG TAB PO SCH (08:48)
[2018-03-29] MEDS: TAMSULOSIN HCL 0.4 MG CAP PO SCH (08:48)
--- NOTE | 2018-03-29 09:41 | SOAPPROG ---
SOAP Progress Note Assessment/Plan: Assessment/Plan: GARETH on CKD 2: Rise in Cr from baseline of 1.2 to 1.8 yesterday, remained stable there on recheck. Likely multifactorial in setting of contrast given, poor oral intake while NPO for tests, and ongoing HCTZ and ARB usage, BP running a little low. Pt now nonoliguric with good lytes and volume status with IVFs, Cr down to 1.4 today. UA unrevealing and renal US with a cyst. - No need for HD at this time. - Ok to stop IVFs on discharge. - Avoid hypotension and nephrotoxins. - Would continue to hold HCTZ and ARB for now. - Will ensure he has f/u in clinic after discharge and repeat labs next week. - Ok to discharge from nephrology standpoint. HTN: BP a bit on the low side here. - Would hold HCTZ and ARB on discharge for now. - Ok to provide some prn hydralazine to go home with, pt will continue to check his BP at home. - Will f/u as outpatient. Subjective: No acute events overnight. Pt had better UOP overnight with 1350ml yesterday total. He has no swelling, is breathing comfortably, denies any pain. He still is only able to eat or drink a little at a time because it makes him feel full. Objective: Vital Signs Temp Pulse Resp BP Pulse Ox 36.9 C 41 L 16 116/71 97 03/29/18 08:00 03/29/18 08:00 03/29/18 08:00 03/29/18 08:00 03/29/18 08:00 Laboratory Results 03/29/18 04:48 03/29/18 04:48 03/28/18 03/29/18 03/30/18 05:59 05:59 05:59 Intake Total 2054 4728 Output Total 1350 150 Balance 2054 3378 -150 PT 15.4 SEC (12.0-15.0) H 03/27/18 12:15 INR 1.20 (0.83-1.16) H 03/27/18 12:15 General: alert and oriented, no acute distress Eyes: EOMI, PERRL OP: Clear CV: RRR Resp: nonlabored respirations on RA Abd: Soft, ND Ext: no edema BLE Neuro: CN II-XII grossly intact, no asterixis Psych: cooperative, appropriate mood and affect ICD10 Worksheet Patient Problems: Problems Problem Status Onset Jaundice Acute Pancreatic tumor Acute Pulmonary embolism Acute
--- NOTE | 2018-03-29 11:39 | SOAPPROG ---
SOKADY Progress Note Assessment/Plan: E&M probable pancreatic cancer * Pancreatic mass with liver lesions: presumed pancreatic cancer; biopsy pending. I spent >35 with patient and discussing therapy options. They will get the port sunday and 2nd opinion on sunday. He is leaning toward starting with gem/abraxane and would like to start next week. Will get baseline staging chest CT. Will set him up for chemo teach and start therapy. * Pulmonary Embolism: incidental but patient high risk so I recommend anticoagulation. Stay on LMWH for now. * Biliary Obstruction: s/p stent placed 03/27. Bili much better. * Increased Scr: probably multifactorial but seems to be getting better with hydration. Nephrology saw patient. Subjective: Doing better and urinating. Objective: Vital Signs Temp Pulse Resp BP Pulse Ox 36.9 C 41 L 16 116/71 97 03/29/18 08:00 03/29/18 08:00 03/29/18 08:00 03/29/18 08:00 03/29/18 08:00 Laboratory Results 03/29/18 04:48 03/29/18 04:48 03/28/18 03/29/18 03/30/18 05:59 05:59 05:59 Intake Total 5 4728 Output Total 1350 150 Balance 2054 3378 -150 PT 15.4 SEC (12.0-15.0) H 03/27/18 12:15 INR 1.20 (0.83-1.16) H 03/27/18 12:15 Physical Exam - Physical Exam General Appearance: no apparent distress Respiratory: lungs clear Cardiac/Chest: regular rate, rhythm ICD10 Worksheet Patient Problems: Problems Problem Status Onset Jaundice Acute Pancreatic tumor Acute Pulmonary embolism Acute
[2018-03-29] MEDS ORDERED: ENOXAPARIN 60 MG/0.6 ML SYR SC SCH (11:45)
[2018-03-29] MEDS ORDERED: ENOXAPARIN 80 MG/0.8 ML SYR SC SCH (12:00)
--- NOTE | 2018-03-29 12:03 | ASMTLACE ---
LACE Length of stay for Answers: 2 days current admission Acuity / Level of Answers: Yes Care: Did the patient have an inpatient admission? Comorbidities - select Answers: Any tumor (including all that apply lymphoma or leukemia) # of Emergency department Answers: 0 visits in the last 6 months Score: 7 Date Signed: 03/29/2018 12:01 PM Electronically Signed By:Cindi Ott RN
--- NOTE | 2018-03-29 12:06 | ASMTCMCOM ---
CM Note CM Note Notes: Chart reviewed. Medically cleared for dc to home. No current needs identified. Fabric Normalizer to follow. Plans in place for port placement and follow up with oncologist. CM available should needs arise. Plan: Home independently with family support. Date Signed: 03/29/2018 12:05 PM Electronically Signed By:Cindi Ott RN
--- NOTE | 2018-03-29 13:56 | PDDCSUM ---
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 Path is pending but he likely has pancreatic cancer. He will have Port placed on Sunday. He was started on Lovenox for P.E. See below for details per problem list. #Painless Jaundice #Pancreatic Mass obstructing CBD concerning for primary Pancreatic adenocarcinoma. s/p stenting -Second opinion this week -F/u with Dr. Sanchez this week -Await Patch #Liver Lesions, Adrenal Gland Lesion #Hyperbilirubinemia, much improved #Bradycardia, sinus, at rest, chronic #HTN, holding meds until f/u with Dr. Flor #Hypokalemia/Hypomagnesemia #P.E. -Lovenox started -Can transition to oral agent once procedures are performed #Acute Kidney Injury, likely multifactorial, better with IVF. Will have f/u with Dr. Flor next week. Exam: NAD AAOX3 RRR CTA B NO LE EDEMA MEDS: SEE MED REC F/U: PER ABOVE TOTAL TIME SPENT ON D/C IS 35 MINS
[2018-03-31] MEDS ORDERED: Etanercept [Enbrel] 50 MG SQ SCH (09:00)
--- NOTE | 2018-04-02 12:12 | PQFORM ---
PHYSICIAN QUERY FORM Needs Your Response This query form is being sent to you to assure this patient record is coded properly. Please respond to the question below: MERCHANDISING STOCK ASSOCIATE QUESTION: Dear Dr. Torres, In reviewing this patient pathology report it is noted positive findings for malignant cells on the liver lesion biopsy. After study, should the diagnosis of Metastatic Neoplasm of the Liver, consistent with pancreatic primary be included in the discharge summary? __x__ Yes ____ No ____ Unable to determine ____ Other more appropriate diagnosis (please specify) Thank you CHERRIE Richardson HIM/Coding Dept. [phone] INSTRUCTIONS FOR RESPONSE: Answer question by clicking on the "Edit Document" button. Move cursor to area below the stars. When complete, hit "Save." Click on the "Sign" button, then click "Sign" again. Type in your PIN and hit "Enter." MTDD
== END 2018-03-29 13:46 | disposition home or self-care (01) | DRG 420 ==
LOC: F1N 17:30
PROVIDERS: ADMIT Family Medicine; ATTEND Family Medicine
PROC: 0FBG8ZX Excision of Pancreas, Via Natural or Artificial Opening Endoscopic, Diagnostic (ICD-10-PCS; principal; 2018-03-27 16:30)
PROC: 0DB68ZX Excision of Stomach, Via Natural or Artificial Opening Endoscopic, Diagnostic (ICD-10-PCS; principal; 2018-03-27 16:30)
PROC: 0FB04ZX Excision of Liver, Percutaneous Endoscopic Approach, Diagnostic (ICD-10-PCS; principal; 2018-03-27 16:30)
PROC: 0F798DZ Dilation of Common Bile Duct with Intraluminal Device, Via Natural or Artificial Opening Endoscopic (ICD-10-PCS; 2018-03-27 16:30)
DX: C25.0 Malignant neoplasm of head of pancreas (principal); I26.99 Other pulmonary embolism without acute cor pulmonale; C78.7 Secondary malignant neoplasm of liver and intrahepatic bile duct; N17.9 Acute kidney failure, unspecified; R17 Unspecified jaundice; R00.1 Bradycardia, unspecified; I12.9 Hypertensive chronic kidney disease with stage 1 through stage 4 chronic kidney disease, or unspecified chronic kidney disease; N18.2 Chronic kidney disease, stage 2 (mild); E87.6 Hypokalemia; E83.42 Hypomagnesemia; M06.00 Rheumatoid arthritis without rheumatoid factor, unspecified site
CPT/HCPCS: 82565-PO; 82947-QW; 86301-90; 96374; C1874; J0295; J1610; J1650; J2001; J2250; J2704; J3475; Q9961

== ENCOUNTER → 2018-04-15 | Outpatient (CLI) | payer OTHER, MEDICARE | LOC: FIMAGING 14:01 | PROVIDERS: ATTEND Nurse Practitioner | DX: I82.492 Acute embolism and thrombosis of other specified deep vein of left lower extremity (principal); L53.9 Erythematous condition, unspecified; C25.9 Malignant neoplasm of pancreas, unspecified; Z79.01 Long term (current) use of anticoagulants ==

== ENCOUNTER → 2018-04-22 | Outpatient (CLI) | payer OTHER, MEDICARE | LOC: FIMAGING 09:24 | PROVIDERS: ATTEND Nurse Practitioner | DX: I82.492 Acute embolism and thrombosis of other specified deep vein of left lower extremity (principal); Z79.01 Long term (current) use of anticoagulants ==